=== PATIENT | female | born 1960 | race Caucasian/White ===

== ENCOUNTER 2017-04-10 12:36 | Emergency (ER) | payer SELFPAY ==
[~2017-04-10] VITALS: Ht 167.6 cm; Wt 61.0 kg
[2017-04-10 12:41] VITALS: TEMP 36.8; Ht 167.6 cm; Wt 61.0 kg
[2017-04-10] MEDS ORDERED: SODIUM CHLORIDE 0.9% 1000ML 1,000 ML IV STA ×3 (13:07→16:44)
--- NOTE | 2017-04-10 13:30 | EMERGENCY ROOM VISIT NOTE ---
History First contact with patient: 13:05 Chief Complaint: ABDOMINAL PAIN Stated Complaint: ABDOMINAL PAIN, HEADACHE Nursing Triage Summary: pt to the ED with c/o right sided abd pain to the left side and to the right flank since friday night c/o constipation last Bm unknown no urinary complaints History of Present Illness The patient is a 56 year old female who presents to the Emergency Room with complaints of generalized abdominal pain that has been ongoing since Friday evening with decreased appetite and no BM for past several days. Denies prior abdominal surgeries, n/v, f/c, cough, congestion, CP, SOB, dysuria, vaginal discharge, dizziness. Source of History: patient Onset: 4 days Position: abdomen Symptom Intensity: mild Quality: ache Timing: constant Modifying Factors (Worsening): eating Modifying Factors (Relieving): rest Associated Symptoms: + headache, + abdominal pain, No fevers, No chills, No chest pain, No SOB, No nausea, No vomiting, No diarrhea, No urinary symptoms, No fatigue Review of Systems See HPI for pertinent positives and negatives. A total of ten systems were reviewed and were otherwise negative. Past Medical/Surgical History Medical Problems: (1) Chest pain (2) No significant medical problems (3) No significant past surgical history (4) Skull fracture Family History Cancer Social History Smoking Status: Never Smoker Alcohol Use: none Marital Status: Housing Status: lives with family Occupation Status: unemployed Current/Historical Medications Scheduled Famotidine (Pepcid), 20 MG PO BID Ondasetron Odt (Zofran Odt), 4 MG SL Q6H Scheduled PRN Herbals (Herbals), 1 DOSE PO UD PRN for Ailments Allergies NKDA Physical Exam Vital Signs Date Time Temp Pulse Resp B/P (MAP) Pulse Ox O2 Delivery O2 Flow Rate FiO2 04/10/17 18:58 65 18 136/80 96 04/10/17 16:14 67 18 143/86 96 Room Air 04/10/17 14:30 71 18 140/78 96 Room Air 04/10/17 12:41 36.8 72 18 155/11 97 Physical Exam GENERAL: Awake, alert, uncomfortable-appearing, in no distress HENT: Normocephalic, atraumatic. Oropharynx unremarkable. Dry mucus membranes. EYES: Normal conjunctiva. Sclera non-icteric. NECK: Supple. No nuchal rigidity. FROM. No JVD. RESPIRATORY: Clear to auscultation. CARDIAC: Regular rate, normal rhythm. Extremities warm and well perfused. Pulses equal. ABDOMEN: Soft, non-distended. RLQ, epigastric and periumbilical tenderness to palpation. No rebound or guarding. No masses. No peritoneal signs. RECTAL: Deferred. MUSCULOSKELETAL: Chest examination reveals no tenderness. The back is symmetrical on inspection without obvious abnormality. There is no CVA tenderness to palpation. No joint edema. LOWER EXTREMITIES: Calves are equal size bilaterally and non-tender. No edema. No discoloration. NEURO: Normal sensorium. No sensory or motor deficits noted. SKIN: No rash or jaundice noted. Medical Decision & Procedures ER Provider Diagnostic Interpretation: Radiology results as stated below per my review and radiologist interpretation: ABD/PELVIS IV CONTRAST ONLY CT DOSE: 415.11 mGycm HISTORY: Pain. Nausea. RLQ abd pain TECHNIQUE: Multiaxial CT images of the abdomen and pelvis were performed following the use of intravenous contrast. A dose lowering technique was utilized adhering to the principles of ALARA. COMPARISON STUDY: None. FINDINGS: The lung bases are clear. The liver, spleen, gallbladder, pancreas, kidneys, and adrenal glands are within normal limits. No bowel wall thickening or obstruction. The pelvic organs are unremarkable. No suspicious lytic or blastic osseous lesions. The appendix is identified in a retrocecal location best identified on image 53 has a maximum diameter 4 mm. There is suggestion of slight infiltrative change of the right and to a lesser extent left paracolic gutter fat. Bladder is midline. There are several pelvic vascular calcifications. Inguinal regions are unremarkable. IMPRESSION: 1. Study is negative for appendicitis. 2. Mild nonspecific enteritis. The above report was generated using voice recognition software. It may contain grammatical, syntax or spelling errors. Electronically signed by: Chivo Bartholomew M.D. 04/10/2017 2:30 PM Dictated Date/Time: 04/10/2017 2:23 PM PELVIC COMPLETE NON OB CLINICAL HISTORY: 56 years-old Female presenting with RLQ pain, postmenopausal. TECHNIQUE: Real-time grayscale and color and spectral Doppler ultrasound imaging of the pelvis was performed using a transabdominal probe. COMPARISON: None. FINDINGS: Uterus: Normal. Anteverted. The uterus measures 8.0 x 3.5 x 4.7 cm. Endometrial stripe measures 3 mm in thickness. Endometrium normal-appearing. Cervix normal. Right adnexa: Right ovary not visualized. Left adnexa: Left ovary not visualized. Other: No free fluid. IMPRESSION: Normal uterus. Ovaries not visualized. Electronically signed by: Dejan Yang M.D. 04/10/2017 6:26 PM Dictated Date/Time: 04/10/2017 6:24 PM Laboratory Results 04/10/17 13:25 Red Blood Count 4.99, Mean Corpuscular Volume 86.6, Mean Corpuscular Hemoglobin 28.9, Mean Corpuscular Hemoglobin Concent 33.3, Mean Platelet Volume 9.4, Neutrophils (%) (Auto) 59.1, Lymphocytes (%) (Auto) 30.6, Monocytes (%) (Auto) 6.8, Eosinophils (%) (Auto) 3.1, Basophils (%) (Auto) 0.2, Neutrophils # (Auto) 2.88, Lymphocytes # (Auto) 1.49, Monocytes # (Auto) 0.33, Eosinophils # (Auto) 0.15, Basophils # (Auto) 0.01 04/10/17 13:25 Test 04/10/17 13:25 04/10/17 13:43 04/10/17 16:14 White Blood Count 4.87 K/uL (4.8-10.8) Red Blood Count 4.99 M/uL (4.2-5.4) Hemoglobin 14.4 g/dL (12.0-16.0) Hematocrit 43.2 % (37-47) Mean Corpuscular Volume 86.6 fL (80-100) Mean Corpuscular Hemoglobin 28.9 pg (25-34) Mean Corpuscular Hemoglobin Concent 33.3 g/dl (32-36) Platelet Count 169 K/uL (130-400) Mean Platelet Volume 9.4 fL (7.4-10.4) Neutrophils (%) (Auto) 59.1 % Lymphocytes (%) (Auto) 30.6 % Monocytes (%) (Auto) 6.8 % Eosinophils (%) (Auto) 3.1 % Basophils (%) (Auto) 0.2 % Neutrophils # (Auto) 2.88 K/uL (1.4-6.5) Lymphocytes # (Auto) 1.49 K/uL (1.2-3.4) Monocytes # (Auto) 0.33 K/uL (0.11-0.59) Eosinophils # (Auto) 0.15 K/uL (0-0.5) Basophils # (Auto) 0.01 K/uL (0-0.2) RDW Standard Deviation 40.4 fL (36.4-46.3) RDW Coefficient of Variation 12.6 % (11.5-14.5) Immature Granulocyte % (Auto) 0.2 % Immature Granulocyte # (Auto) 0.01 K/uL (0.00-0.02) Anion Gap 7.0 mmol/L (3-11) Est Creatinine Clear Calc Drug Dose 75.3 ml/min Estimated GFR () 97.7 Estimated GFR (Non- 84.3 BUN/Creatinine Ratio 17.2 (10-20) Lactic Acid Level 0.7 mmol/L (0.4-2.0) Calcium Level 9.4 mg/dl (8.5-10.1) Total Bilirubin 0.6 mg/dl (0.2-1) Direct Bilirubin 0.1 mg/dl (0-0.2) Aspartate Amino Transf (AST/SGOT) 21 U/L (15-37) Alanine Aminotransferase (ALT/SGPT) 28 U/L (12-78) Alkaline Phosphatase 95 U/L (45-117) Total Protein 8.4 gm/dl (6.4-8.2) Albumin 4.5 gm/dl (3.4-5.0) Lipase 208 U/L (73-393) Urine Color YELLOW Urine Appearance CLEAR (CLEAR) Urine pH 7.5 (4.5-7.5) Urine Specific [place] 1.006 (1.000-1.030) Urine Protein NEG (NEG) Urine Glucose (UA) NEG (NEG) Urine Ketones NEG (NEG) Urine Occult Blood NEG (NEG) Urine Nitrite NEG (NEG) Urine Bilirubin NEG (NEG) Urine Urobilinogen NEG (NEG) Urine Leukocyte Esterase NEG (NEG) Influenza Type A (RT-PCR) Neg for Influ A (NEG) Influenza Type B (RT-PCR) Neg for Influ B (NEG) Laboratory results reviewed by me Medications Administered Medications (Trade) Dose Ordered Sig/Jamir Route Start Time Stop Time Status Last Admin Dose Admin Sodium Chloride 1,000 ml @ 999 mls/hr Q1H1M STAT IV 04/10/17 13:07 04/10/17 14:07 DC 04/10/17 13:42 999 MLS/HR Fentanyl Citrate (Fentanyl Inj) 50 mcg NOW STAT IV 04/10/17 13:41 04/10/17 13:42 DC 04/10/17 13:49 50 MCG Sodium Chloride 1,000 ml @ 999 mls/hr Q1H1M STAT IV 04/10/17 16:00 04/10/17 17:00 DC 04/10/17 16:12 999 MLS/HR Famotidine (Pepcid 20mg Iv Push) 20 mg NOW STAT IV 04/10/17 16:00 04/10/17 16:02 DC 04/10/17 16:12 20 MG Sodium Chloride 1,000 ml @ 999 mls/hr Q1H1M STAT IV 04/10/17 16:44 04/10/17 17:44 DC 04/10/17 17:13 999 MLS/HR ED Course 1305: The patient was evaluated in room C07. A complete history and physical exam was performed. 1541: I reevaluated the patient and updated her of her exam findings. She is feeling better, and she is going to receive an ultrasound of her pelvis. 1643: The patient refused her transvaginal ultrasound. She will receive fluids and have an ultrasound performed when her bladder is full. 1838: I reevaluated the patient. Discussed results and discharge instructions: she verbalized understanding and agreement. The patient is ready for discharge. Medical Decision I reviewed the patient's past medical history, medications, and the nursing notes as described above. Differential diagnosis: Etiologies such as appendicitis, diverticulitis, PUD, biliary pathology, UTI, pancreatitis, obstruction, mesenteric ischemia, aortic pathology, infections, inflammatory bowel disease, renal colic, as well as others were entertained. The patient is a 56-year-old woman who presents emergency department with right lower quadrant and periumbilical abdominal pain that has been ongoing since Friday with decreased appetite over the past couple of days and no bowel movement over the past couple of days per hpi. While the patient is uncomfortable appearing but no acute distress, afebrile stable vital signs. On exam, the patient has mild tenderness to the right lower quadrant, epigastrim, and periumbilical area with no peritoneal signs. Labs unremarkable including WBC and lactate wnl. CT abd/pelvis with evidence of enteritis. Patient feeling improved after IVF and Pepcid. Given RLQ symptoms attempted to obtain pelvic US however ovaries unable to be visualized. However, given generalized abdominal sx , with CT showing enteritis, unlikely to have pelvic etiology at this time. Findings and plan for follow-up reviewed with patient. Patient agreeable and d/c 'd per discharge instructions. The scribe's documentation has been prepared under my direction and personally reviewed by me in its entirety. I confirm that the note above accurately reflects all work, treatment, procedures, and medical decision making performed by me. Medication Reconcilliation Current Medication List: was personally reviewed by me Blood Pressure Screening Patient's blood pressure: Elevated blood pressure Blood pressure disposition: Elevated BP felt to be situational Impression Primary Impression: Acute gastroenteritis Departure Information Dispostion Home / Self-Care Prescriptions Famotidine (PEPCID) 20 Mg Tab 20 MG PO BID for 7 Days, #14 TAB Prov: Kentrell Leo M.D. 04/10/17 Ondasetron Odt (ZOFRAN ODT) 4 Mg Tab 4 MG SL Q6H for Nausea, #10 TAB Prov: Kentrell Leo M.D. 04/10/17 Referrals No Doctor, Assigned (PCP) Forms Call Back Authorization, HOME CARE DOCUMENTATION FORM, IMPORTANT VISIT INFORMATION Patient Instructions ED Gastroenteritis Viral, [facility] Additional Instructions Please follow up with your primary care physician in the next 1-3 days for re- evaluation. Your symptoms are likely due a viral gastroenteritis. Otherwise, your exam, lab results, and CT scan did not show signs of an emergent condition at this time. Zofran as needed for nausea. Pepcid for acid reduction as directed. Drink plenty of fluids to ensure hydration. Return to the emergency department for worsening symptoms as described in the accompanying instructions.
[2017-04-10] MEDS ORDERED: FENTANYL CITRATE INJ 50 MCG/1 ML 2 ML VIAL IV STA (13:41)
[2017-04-10 13:44] LABS: BASO % 0.2 %; BASO ABS # 0.01 K/uL (0-0.2); EOS % 3.1 %; EOS ABS # 0.15 K/uL (0-0.5); HEMATOCRIT 43.2 % (37-47); HEMOGLOBIN 14.4 g/dL (12.0-16.0); IG# 0.01 K/uL (0.00-0.02); LYMPH % 30.6 %; LYMPH ABS # 1.49 K/uL (1.2-3.4); MEAN CELL VOLUME 86.6 fL (80-100); MEAN CORPUSCULAR HEMOGLOBIN 28.9 pg (25-34); MEAN CORPUSCULAR HGB CONC 33.3 g/dl (32-36); MEAN PLATELET VOLUME 9.4 fL (7.4-10.4); MONO % 6.8 %; MONO ABS # 0.33 K/uL (0.11-0.59); NEUT % 59.1 %; NEUT ABS # 2.88 K/uL (1.4-6.5); PLATELET COUNT 169 K/uL (130-400); RED CELL DISTRIBUTION WIDTH CV 12.6 % (11.5-14.5); RED CELL DISTRIBUTION WIDTH SD 40.4 fL (36.4-46.3); WHITE BLOOD COUNT 4.87 K/uL (4.8-10.8)
[2017-04-10] MEDS ORDERED: OPTIRAY 320 IV PRN (14:00)
[2017-04-10 14:04] LABS: ALBUMIN 4.5 gm/dl (3.4-5.0); CALCIUM 9.4 mg/dl (8.5-10.1); CREATININE 0.79 mg/dl (0.60-1.20); POTASSIUM 3.4 mmol/L (3.5-5.1)
[2017-04-10 14:06] LABS: TOTAL PROTEIN 8.4 gm/dl (6.4-8.2)
--- NOTE | 2017-04-10 14:32 | DIAGNOSTIC IMAGING REPORT ---
ABD/PELVIS IV CONTRAST ONLY CT DOSE: 415.11 mGycm HISTORY: Pain. Nausea. RLQ abd pain TECHNIQUE: Multiaxial CT images of the abdomen and pelvis were performed following the use of intravenous contrast. A dose lowering technique was utilized adhering to the principles of ALARA. COMPARISON STUDY: None. FINDINGS: The lung bases are clear. The liver, spleen, gallbladder, pancreas, kidneys, and adrenal glands are within normal limits. No bowel wall thickening or obstruction. The pelvic organs are unremarkable. No suspicious lytic or blastic osseous lesions. The appendix is identified in a retrocecal location best identified on image 53 has a maximum diameter 4 mm. There is suggestion of slight infiltrative change of the right and to a lesser extent left paracolic gutter fat. Bladder is midline. There are several pelvic vascular calcifications. Inguinal regions are unremarkable. IMPRESSION: 1. Study is negative for appendicitis. 2. Mild nonspecific enteritis. The above report was generated using voice recognition software. It may contain grammatical, syntax or spelling errors. Electronically signed by: Chivo Bartholomew M.D. 04/10/2017 2:30 PM Dictated Date/Time: 04/10/2017 2:23 PM
[2017-04-10] MEDS ORDERED: FAMOTIDINE 20MG/5ML IV PUSH IV STA (16:00)
[2017-04-10] MEDS ORDERED: HRBLS PO (16:25)
[2017-04-10 17:20] LABS: INFLUENZA A PCR Neg for Influ A (NEG); INFLUENZA B PCR Neg for Influ B (NEG)
[2017-04-10] MEDS ORDERED: ONDA4TAB10 SL (18:25)
--- NOTE | 2017-04-10 18:27 | DIAGNOSTIC IMAGING REPORT ---
PELVIC COMPLETE NON OB CLINICAL HISTORY: 56 years-old Female presenting with RLQ pain, postmenopausal. TECHNIQUE: Real-time grayscale and color and spectral Doppler ultrasound imaging of the pelvis was performed using a transabdominal probe. COMPARISON: None. FINDINGS: Uterus: Normal. Anteverted. The uterus measures 8.0 x 3.5 x 4.7 cm. Endometrial stripe measures 3 mm in thickness. Endometrium normal-appearing. Cervix normal. Right adnexa: Right ovary not visualized. Left adnexa: Left ovary not visualized. Other: No free fluid. IMPRESSION: Normal uterus. Ovaries not visualized. Electronically signed by: Dejan Yang M.D. 04/10/2017 6:26 PM Dictated Date/Time: 04/10/2017 6:24 PM
[2017-04-10] MEDS ORDERED: FAMO20TA9 PO (18:29)
[2017-04-10 18:58] VITALS: BP 136/80; PULSE 65; O2SAT 96
== END 2017-04-10 18:59 | disposition home or self-care (01) ==
LOC: C.EDB 12:38 → C.EDC 18:59
DX: K52.9 Noninfective gastroenteritis and colitis, unspecified (principal); R10.84 Generalized abdominal pain